=== PATIENT | male | born 1965 | race Caucasian/White ===

== ENCOUNTER 2018-10-21 05:57 | Day surgery (SDC) | payer BC ==
[2018-10-21] MEDS ORDERED: Lactated Ringers 1,000 ML IV ONE (06:44)
[2018-10-21] MEDS ORDERED: Lactated Ringers 1,000 ML IV SCH (07:00)
[2018-10-21] MEDS ORDERED: DIPRIVAN 200 MG/20 ML IV ONE ×2 (07:55→08:18)
[2018-10-21] MEDS ORDERED: Versed 2 MG/2 ML Injection ONE ×2 (07:56→07:57)
[2018-10-21 09:02] VITALS: O2SAT 99
[2018-10-21 09:15] VITALS: BP 120/86; PULSE 62
--- NOTE | 2018-10-21 10:02 | OP ---
SURGERY DATE/TIME: 10/21/2018 0756 PREOPERATIVE DIAGNOSES: 1) Epigastric pain. 2) Weight loss. POSTOPERATIVE DIAGNOSES: 1) Moderate gastritis. 2) Normal colon. PROCEDURES: 1) Esophagogastroduodenoscopy and cold forceps biopsy. 2) Colonoscopy. SURGEON: Dr. Herrera. ANESTHESIA: Medications were given by the anesthesia department. BRIEF HISTORY: The patient is a 53 year old white male patient presenting now for endoscopic evaluation. The patient reports he had been taking Aleve and this was discontinued and placed on meloxicam. The patient does also drink some alcohol and chews as well. The patient was felt the need to have endoscopic evaluation. He was appraised of the risks of the procedure including the risk of perforation, phlebitis, untoward reaction to medication, bleeding and missed lesions. The patient verbalized his understanding and desired to have the procedure performed. DESCRIPTION OF PROCEDURE: The patient was given the medications by the anesthesia department. He had continuous pulse oximetry, ECG monitoring, intermittent blood pressure monitoring and tidal CO2 monitoring during the examination. He was placed in the left lateral decubitus position. A bite block was placed and the flexible Olympus gastroscope was used to intubate the oropharynx. A view of the larynx was obtained and was normal. The scope was easily introduced in the esophagus which appeared to be normal throughout its length. The stomach was entered where normal gastric rugal folds were seen and the gastric almonte was suctioned dry and the stomach was re-insufflated. The gastric rugal folds distended nicely with insufflation of air. The scope was passed along the greater curvature of the stomach to the antrum. The pylorus is encountered and intubated. The duodenum inspected and found to be normal. The scope is withdrawn towards the stomach. A retroflex view was obtained of the lesser curvature, fundus and cardia regions of the stomach and these appeared to be essentially normal. The scope was then redirected towards the gastric antrum. Biopsies were obtained from the antrum to rule out the presence of Helicobacter pylori-type organisms. There were no erosions or ulcerations noted. There was patchy erythema throughout the stomach. The scope was then removed from the patient. Next, a digital rectal examination was performed and revealed normal anal sphincter tone and no masses and normal prostate. The flexible Olympus pediatric colonoscope was used to intubate the rectum. A view of the colon was developed sequentially to the cecum. Upon insertion and withdrawal, including a retroflex view in the rectum, no mucosal lesions were encountered. The scope was removed from the patient who tolerated the procedure well and was sent back to OP recovery in good condition. The prep was noted to be fair to good.
== END 2018-10-21 09:15 | disposition home or self-care (01) ==
LOC: SDC 05:57
PROVIDERS: ATTEND Family Medicine
DX: K29.70 Gastritis, unspecified, without bleeding (principal); R19.7 Diarrhea, unspecified; R63.4 Abnormal weight loss; R10.13 Epigastric pain
CPT/HCPCS: J2250; J2704